=== PATIENT | female | born 1970 | race Caucasian/White ===

== ENCOUNTER 2016-12-07 09:47 | Emergency (ER) | payer OTHER ==
[~2016-12-07] VITALS: Ht 167.6 cm; Wt 99.0 kg
[~2016-12-07 09:47] MED LIST: CYCL-117 PO; HYDR-762 PO
[2016-12-07 09:50] VITALS: Ht 167.6 cm; Wt 99.0 kg
[2016-12-07] MEDS ORDERED: KETOROLAC 30 MG INJ IV STA (11:07)
[2016-12-07] MEDS ORDERED: morphine 2 MG INJ IV STA (11:07)
[2016-12-07] MEDS ORDERED: LABETALOL HCL 20MG INJ IV ONE (11:30)
--- NOTE | 2016-12-07 11:53 | RADRPT ---
PROCEDURE: XR Chest. CLINICAL INDICATION: chest pain TECHNIQUE: Single frontal view of the chest was obtained COMPARISON: None FINDINGS: The heart and mediastinum are within normal limits. The lungs are clear. There is no pleural effusion or pneumothorax. RPTAT: AA IMPRESSION: No acute disease. .Steve Christie MD, Date Time Electronically viewed and signed by .Steve Christie MD, on 12/07/2016 11:53 .S/
[2016-12-07 12:06] LABS: BASOPHIL # 0.1 10^3/ul (0.0-0.1); BASOPHILS % 1.3 % (0.0-2.0); EOSINOPHILS # 0.1 10^3/ul (0.0-0.5); EOSINOPHILS % 1.1 % (0.0-7.0); HEMATOCRIT 46.8 % (37.0-47.0); HEMOGLOBIN 15.6 g/dl (12.0-16.0); LYMPHOCYTES # 1.2 10^3/ul (0.8-2.9); LYMPHOCYTES % 18.4 % (15.0-51.0); MEAN CORPUSCULAR HEMOGLOBIN 31.9 pg (29.0-33.0); MEAN CORPUSCULAR HGB CONC 33.3 g/dl (32.0-37.0); MEAN CORPUSCULAR VOLUME 95.7 fl (82.0-101.0); MEAN PLATELET VOLUME 10.7 fl (7.4-10.4); MONOCYTE # 0.7 10^3/ul (0.3-0.9); MONOCYTES % 10.9 % (0.0-11.0); NEUTROPHIL # 4.3 10^3/ul (1.6-7.5); NEUTROPHILS % 67.8 % (39.0-77.0); PLATELET COUNT 191 10^3/UL (140-415); RED BLOOD COUNT 4.89 10^6/ul (4.20-5.40); RED CELL DISTRIBUTION WIDTH 12.3 % (11.5-14.5); WHITE BLOOD COUNT 6.3 10^3/ul (4.8-10.8)
[2016-12-07 12:23] LABS: ANION GAP 19 (8-16); BLOOD UREA NITROGEN 11 mg/dl (7-20); CALCIUM 9.6 mg/dl (8.4-10.2); CARBON DIOXIDE 26 mmol/L (21-31); CHLORIDE 106 mmol/L (97-110); CREATININE 0.76 mg/dl (0.44-1.00); GLUCOSE 82 mg/dl (70-220); POTASSIUM 4.1 mmol/L (3.5-5.1); SODIUM 147 mmol/L (135-144)
[2016-12-07 12:25] LABS: INR 0.93; PROTIME 12.5 Sec (12.2-14.2)
[2016-12-07 12:26] LABS: PARTIAL THROMBOPLASTIN TIME 27.5 Sec (25.0-35.0)
--- NOTE | 2016-12-07 12:33 | RADRPT ---
PROCEDURE: CT cervical spine without contrast CLINICAL INDICATION: Trauma. Neck pain. TECHNIQUE: CT scan of the cervical spine was performed on a multidetector high[facility]. No IV contrast was administered. Coronal and sagittal reformatted images were obtained from th e axial source images. Images were reviewed on a high-resolution PACS workstation. One or more the f ollowing does reduction techniques were utilized: Automated exposure control, adjustment of the mA/ or kV according to patient's size, or use of iterative reconstruction technique. Exam CTDI = 22.11 m Gy and the DLP = 414.38 mGy-cm. COMPARISON: None available. FINDINGS: There is reversal of normal cervical lordosis centered at C4-C5. Alignment remains intact. No acut e fracture or dislocation is seen. The vertebral body heights are preserved. No mass, hematoma, or other soft tissue abnormality is seen. There are multilevel mild degenerative changes of the cervical spine, manifested by osteophytosis an d disc height narrowing, most prominent at C4-C5, C5-C6 and C6-C7. Uncovertebral osteophytes and fac et arthropathy result in multilevel foraminal stenosis: at C3-C4 mild on the right, and at C6-C7 min imal on the right and moderate to severe on the left. Posterior disk osteophyte complexes contribute to mild spinal canal narrowing at C3-C4 through C6-C7. IMPRESSION: 1. Reversal of normal cervical lordosis centered at C4-C5. 2. No acute fracture or traumatic subluxation. 3. Multilevel mild degenerative changes of the cervical spine, most prominent at C4-C5, C5-C6 and C 6-C7. 4. Posterior disk osteophyte complexes contribute to mild spinal canal narrowing at C3-C4 through C 6-C7. 5. Multilevel foraminal stenosis as outlined in details in findings. RPTAT: HH .Tiffanie Mahan MD, MD Date Time Electronically viewed and signed by .Tiffanie Mahan MD, MD on 12/07/2016 12:32 .N/
[2016-12-07 12:34] LABS: B-TYPE NATRIURETIC PEPTIDE 37 PG/ML (0-125)
[2016-12-07 12:37] LABS: TROPONIN-I < 0.012 ng/ml (0.00-0.12)
[2016-12-07] MEDS ORDERED: METH750T93 PO (13:57)
[2016-12-07] MEDS ORDERED: NAPR-688 PO (13:57)
[2016-12-07] MEDS ORDERED: AMLO-147 PO (13:57)
[2016-12-07] MEDS ORDERED: HYDR-906 PO (13:57)
[2016-12-07] MEDS ORDERED: DIAZEPAM 5 MG/ML SYG IV ONE (14:00)
[2016-12-07] MEDS ORDERED: morphine 2 MG INJ IV ONE (14:00)
--- NOTE | 2016-12-07 14:15 | ERD ---
ER Documentation Chief Complaint Date/Time DATE: 12/07/16 TIME: 14:07 Chief Complaint HTN 177/117, UNDIAGNOSED, AND LEFT SHOULDER PAIN, DX PINCHED NERVE HPI This 46-year-old female presented for severe hypertension after she was seen in her doctor's office for 3 weeks of neck pain is made worse when she makes certain arm movements and certain neck movements. She has had no fevers or chills and does not have a headache. She denies any chest pain, shortness of breath, nausea. He has never been noticed with high blood pressure before. ROS All systems reviewed and are negative except as per history of present illness. Medications Home Meds Active Scripts Methocarbamol* (Robaxin*) 750 Mg Tablet, 750 MG PO Q6H Y for MUSCLE SPASMS, #30 TAB Prov:JOVANNA NAYAK DO 12/07/16 Naproxen* (Naproxen*) 500 Mg Tablet, 500 MG PO BID Y for PAIN, #30 TAB Prov:JOVANNA NAYAK DO 12/07/16 Hydrocodone/Acetaminophen (Lachine 5-325 Tablet) 1 Each Tablet, 1 EACH PO Q6, #24 TAB Prov:MALINIJOVANNA DO 12/07/16 Amlodipine Besylate* (Amlodipine Besylate*) 10 Mg Tablet, 10 MG PO DAILY, #30 TAB Prov:MALINIJOVANNASTEVEN DEWEY 12/07/16 Reported Medications Cyclobenzaprine Hcl (Flexeril) 10 Mg Tablet, 10 MG PO TID 12/04/12 Hydrocodone Bit-Acetaminophen* (Lachine*) 1 Tab Tablet, 1 TAB PO NEDDED 12/04/12 Allergies Allergies: Coded Allergies: No Known Allergy (Verified , 12/04/12) PMhx/Soc History of Surgery: Yes (APPY) Anesthesia Reaction: No Hx Neurological Disorder: Yes (PINTCHED NERVE IN LT SHOULDER) Hx Respiratory Disorders: No Hx Cardiac Disorders: No Hx Psychiatric Problems: No Hx Miscellaneous Medical Probl: No Hx Alcohol Use: Yes (DAILY COUPLE GLASSES OF WINE) Hx Substance Use: No Hx Tobacco Use: Yes (IN THE PROCESS OF QUITING) Smoking Status: Current some day smoker Physical Exam Vitals Vital Signs Date Time Temp Pulse Resp B/P Pulse Ox O2 Delivery O2 Flow Rate FiO2 12/07/16 10:59 98.0 77 18 167/114 100 Room Air 12/07/16 09:50 98.0 99 18 177/117 99 Physical Exam Const: [] Head: Atraumatic Eyes: Normal Conjunctiva ENT: Normal External Ears, Nose and Mouth. Neck: Full range of motion..~ No meningismus. Resp: Clear to auscultation bilaterally Cardio: Regular rate and rhythm, no murmurs Abd: Soft, non tender, non distended. Normal bowel sounds Skin: No petechiae or rashes Back: No midline or flank tenderness Ext: No cyanosis, or edema Neur: Awake and alert Psych: Normal Mood and Affect Result Diagram: 12/07/16 1130 12/07/16 1130 Results 24 hrs Laboratory Tests Test 12/07/16 11:30 White Blood Count 6.310^3/ul Red Blood Count 4.8910^6/ul Hemoglobin 15.6g/dl Hematocrit 46.8% Mean Corpuscular Volume 95.7fl Mean Corpuscular Hemoglobin 31.9pg Mean Corpuscular Hemoglobin Concent 33.3g/dl Red Cell Distribution Width 12.3% Platelet Count 02541^3/UL Mean Platelet Volume 10.7fl Neutrophils % 67.8% Lymphocytes % 18.4% Monocytes % 10.9% Eosinophils % 1.1% Basophils % 1.3% Nucleated Red Blood Cells % 0.0/100WBC Neutrophils # 4.310^3/ul Lymphocytes # 1.210^3/ul Monocytes # 0.710^3/ul Eosinophils # 0.110^3/ul Basophils # 0.110^3/ul Nucleated Red Blood Cells # 0.010^3/ul Prothrombin Time 12.5Sec Prothrombin Time Ratio 1.0 INR International Normalized Ratio 0.93 Activated Partial Thromboplast Time 27.5Sec Sodium Level 147mmol/L Potassium Level 4.1mmol/L Chloride Level 106mmol/L Carbon Dioxide Level 26mmol/L Anion Gap 19 Blood Urea Nitrogen 11mg/dl Creatinine 0.76mg/dl Glucose Level 82mg/dl Calcium Level 9.6mg/dl Troponin I < 0.012ng/ml B-Type Natriuretic Peptide 37PG/ML Current Medications Medications (Trade) Dose Ordered Sig/Zachary Route PRN Reason Start Time Stop Time Status Last Admin Dose Admin Morphine Sulfate (morphine) 2 mg ONCE STAT IV 12/07/16 11:07 12/07/16 11:11 DC 12/07/16 11:35 Ketorolac Tromethamine (Toradol) 30 mg ONCE STAT IV 12/07/16 11:07 12/07/16 11:11 DC 12/07/16 11:35 Labetalol HCl (Labetalol) 20 mg ONCE ONCE IV 12/07/16 11:30 12/07/16 11:31 DC 12/07/16 11:44 Diazepam (Valium) 5 mg ONCE ONCE IV 12/07/16 14:00 12/07/16 14:01 DC 12/07/16 13:48 Morphine Sulfate (morphine) 2 mg ONCE ONCE IV 12/07/16 14:00 12/07/16 14:01 DC 12/07/16 13:50 Procedures/MDM Undiagnosed severe hypertension and degenerative joint disease causing left upper neck pain and left muscle spasm. 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 She was given morphine, Toradol, Valium IV which almost resolved her neck pain. Muscle spasms also improved. Cardiac workup and laboratories were performed to look for any kidney damage or cardiac dysfunction secondary to her undiagnosed hypertension. There were none. She was given labetalol IV for lowering of her hypertension after pain medication did not lead to resolution. Going to discharge her with amlodipine 10 mg daily and primary care follow-up in the next couple of days. CD was made of her neck CT and copies of her labs her primary care doctor. Also recommending she follow -up with orthospine doctor and obtain an MRI of the neck EKG interpretation: Sinus origin of rhythm with no concerning intervals and no ST or T-wave changes concerning for acute ischemia. finishing frame runner interpretation: Normal sinus rhythm without arrhythmia Chest x-ray interpretation: I see no acute process, no vitamin Varma, pneumothorax, no infiltrates, no fractures CT C-spine interpretation: See no fractures or subluxations however there is multilevel degenerative joint disease with multilevel stenosis. Critical care time 35 minutes: This includes treatment of severe hypertension require the patient to be admitted to ICU for cannot be lowered, use of IV vasoactive medication labetalol, multiple visits patient's bedside to reassess status, stepwise pain control, chart reviewed, discussion with patient. This does not include any billable procedure Departure Diagnosis: Primary Impression: Degenerative joint disease of cervical spine Additional Impression: Accelerated hypertension Condition: Stable Patient Instructions: Hypertension, New (Begin Treatment), Neck Spasm, No Trauma Additional Instructions: Call your primary care doctor TOMORROW for an appointment during the next 2-3 days. Request referral for ortho spine doctor and appointment for MRI C-spine. See the doctor sooner or return here if your condition worsens before your appointment time. JOVANNA NAYAK DO Dec 07, 2016 14:15
[2016-12-07 14:27] VITALS: BP 150/100; PULSE 65; RESP 19; TEMP 97.8
== END 2016-12-07 14:28 | disposition home or self-care (01) ==
LOC: E/R 09:47
DX: M50.30 Other cervical disc degeneration, unspecified cervical region (principal); R40.2252 Coma scale, best verbal response, oriented, at arrival to emergency department; I10 Essential (primary) hypertension; F17.210 Nicotine dependence, cigarettes, uncomplicated; R07.9 Chest pain, unspecified; R40.2142 Coma scale, eyes open, spontaneous, at arrival to emergency department; R40.2362 Coma scale, best motor response, obeys commands, at arrival to emergency department
CPT/HCPCS: 36415; 71010; 72125; 80048; 83880; 84484; 85025; 85610; 85730; 93005; 96374; 96375; 96376; 99291; J1885; J2270; J3360